=== PATIENT | male | born 2000 | race Caucasian/White ===

== ENCOUNTER 2019-05-02 06:37 | Emergency (ER) | payer SELFPAY ==
[~2019-05-02] VITALS: Ht 167.6 cm; Wt 55.0 kg
[2019-05-02 07:30] VITALS: BP 116/62
[2019-05-02] MEDS ORDERED: IBUPROFEN 600MG TABLET PO ONE (07:30)
== END 2019-05-02 07:51 | disposition home or self-care (01) ==
LOC: ER 06:37
DX: S00.83XA Contusion of other part of head, initial encounter (principal); Z98.890 Other specified postprocedural states; Y08.89XA Assault by other specified means, initial encounter; Y93.89 Activity, other specified; Y92.89 Other specified places as the place of occurrence of the external cause; Y99.8 Other external cause status
CPT/HCPCS: 99283